=== PATIENT | male | born 1965 | race Hispanic/Latino ===

== ENCOUNTER 2017-11-12 06:04 | Inpatient (IN) | payer OTHER ==
[2017-10-24 14:23] VITALS: BMI 34.8
[2017-11-12 07:11] LABS: BASO # 0.1 K/uL (0.0-0.2); BASO % 1.4 % (0.0-2.0); EOS # 0.3 K/uL (0.0-0.7); EOS % 5.1 % (0.0-4.0); HEMOGLOBIN 14.9 g/dL (12.0-18.0); LYMPH # 2.5 K/uL (1.0-4.3); LYMPH % 38.1 % (20.0-40.0); MEAN CELL VOLUME 87.8 fl (80.0-94.0); MEAN CORPUSCULAR HEMOGLOBIN 30.1 pg (27.0-31.0); MEAN CORPUSCULAR HGB CONC 34.2 g/dL (33.0-37.0); MONO # 0.8 K/uL (0.0-0.8); MONO % 12.3 % (0.0-10.0); NEUT # 2.8 K/uL (1.8-7.0); NEUT % 43.1 % (50.0-75.0); NRBC % 0.1 % (0.0-0.0); RBC 4.94 Mil/uL (4.40-5.90); RED CELL DISTRIBUTION WIDTH 12.6 % (11.5-14.5); WHITE BLOOD COUNT 6.5 K/uL (4.8-10.8)
[2017-11-12] MEDS ORDERED: Lactated Ringer's 1,000 ML IV ONE (07:17)
[2017-11-12 07:19] LABS: ALB/GLOB RATIO 1.2 (1.0-2.1); ALBUMIN 3.6 g/dL (3.5-5.0); ALT/SGPT 36 U/L (21-72); AST/SGOT 27 U/L (17-59); BLOOD UREA NITROGEN 15 mg/dl (9-20); CALCIUM 8.8 mg/dL (8.4-10.2); GFR AFRICAN-AMERICAN > 60; GFR NON-AFRICAN AMERICAN > 60
[2017-11-12] MEDS ORDERED: Propofol 10 mg/ml Inj (20 ML) ONE ×2 (07:29→08:00)
[2017-11-12] MEDS ORDERED: Succinylcholine 200 mg/10 ml Inj IV ONE (07:29)
[2017-11-12] MEDS ORDERED: Lidocaine 4% (Laryng-O-Jet) Kit MM ONE (07:29)
[2017-11-12] MEDS ORDERED: Midazolam 2 MG/2 ML VIAL ONE (07:29)
[2017-11-12] MEDS ORDERED: Sodium Chloride 0.9% 10 ML IV ONE (07:30)
[2017-11-12] MEDS ORDERED: Rocuronium 10 mg/ml (5 ml) ONE ×2 (07:32→08:24)
[2017-11-12] MEDS ORDERED: Sodium Chloride 0.9% 20 ML IV ONE (07:35)
[2017-11-12] MEDS ORDERED: Thrombin Topical 5,000 Int Units Spray Kit ONE (07:35)
[2017-11-12] MEDS ORDERED: Absorbable Gelatin Sponge Size 100 ONE (07:35)
[2017-11-12] MEDS ORDERED: Bacitracin Ointment 30 GM TUBE ONE (07:35)
[2017-11-12 07:51] LABS: INR 1.1 (0.9-1.2); PARTIAL THROMBOPLASTIN TIME 32.1 Seconds (25.6-37.1); PROTHROMBIN TIME 11.7 Seconds (9.8-13.1)
[2017-11-12] MEDS: Bupivacaine HCl 0.5% PF (30 ml) Inj ONE ×2 (09:44→10:07)
[2017-11-12] MEDS: EPINEPHrine 1 mg/ml (1:1000) Inj ONE ×2 (09:45→10:07)
[2017-11-12] MEDS: Morphine 1 mg/ml preservative-free Inj(Duramorph) ONE ×2 (09:46→10:07)
[2017-11-12] MEDS ORDERED: Sodium Chloride 0.9% Inj (10mL) IV ONE ×2 (09:47→10:07)
[2017-11-12] MEDS: Lactated Ringer's 1,000 ML IV SCH ×2 (10:50→21:31)
[2017-11-12] MEDS ORDERED: HYDROmorphone 0.5 mg/0.5 ml ISec IVP PRN (10:53)
--- NOTE | 2017-11-12 10:54 | PCM.SURG1 ---
Surgeon's Initial Post Op Note - Surgeon's Notes Surgeon: Cesar Mehta MD Flooring Helper: Adriel Campbell PA-C; Marbella Romero DPM Type of Anesthesia: General Endo Pre-Operative Diagnosis: Left Knee severe OA Operative Findings: See op report Post-Operative Diagnosis: Same as pre-op dx Operation Performed: L TKR Specimen/Specimens Removed: Left knee bone and soft tissue Estimated Blood Loss: EBL {In ML}: 50 Date of Surgery/Procedure: 11/12/17 Time of Surgery/Procedure: 08:00
[2017-11-12] MEDS ORDERED: Oxycodone/Acetaminophen 5/325 mg Tab PO PRN (11:02)
--- NOTE | 2017-11-12 12:52 | RAD ---
PROCEDURE: Left Knee Radiographs. HISTORY: Status post left TKA are presenting with pain COMPARISON: None. FINDINGS: BONES: Expected postoperative findings. JOINTS: Air within the infrapatellar space and suprapatellar bursa. JOINT EFFUSION: Expected postoperative joint effusion with a air OTHER FINDINGS: None. IMPRESSION: Satisfactory postoperative status.
[2017-11-12] MEDS ORDERED: ceFAZolin 1 GM in Sodium Chloride 0.9% 100 ML IVPB ONE ×2 (14:00→20:00)
--- NOTE | 2017-11-12 16:10 | CP.PCM.HP ---
History of Present Illness - History of Present Illness History of Present Illness: 52 yr old M presented to same day surgery for scheduled left total knee replacement s/p chronic pain secondary to osteoarthritis of left knee refractory to conservative treatment. PMH includes hypercholesterolemia. Patient denies SOB, chest pain, palpitations, nausea or vomiting. PMD: [facility] (clinic has various PMD's) Specialist: Dr. Mehta- orthopedic surgery PMHx: Hypercholesterolemia SurHx: Right ACL repair, various MSK surgical procedures ( bilateral hands and feet) FMHx: Mother is 87 with HTN and PVD, Dad from [place] in his 70's, brother has multiple myeloma, younger brother diagnosed with colon cancer at 49 , twin sister has epilepsy SocHx: denies tobacco, social EToH, denies drugs Medications: lipitor 20 mg PO QHS Allergies: NKDA Present on Admission - Present on Admission Any Indicators Present on Admission: No History of DVT/PE: No History of Uncontrolled Diabetes: No Urinary Catheter: No Decubitus Ulcer Present: No History Surgical Site Infection Following: None Review of Systems - Review of Systems All systems: reviewed and no additional remarkable complaints except (for what is mentioned in HPI) - Constitutional Constitutional: absent: Chills, Fever - EENT Eyes: absent: Blurred Vision, Change in Vision Ears: absent: Ear Discharge, Ear Pain Nose/Mouth/Throat: absent: Nasal Congestion, Nasal Discharge - Cardiovascular Cardiovascular: absent: Chest Pain, Dyspnea - Respiratory Respiratory: absent: Cough, Hemoptysis - Gastrointestinal Gastrointestinal: absent: Abdominal Pain, Nausea, Vomiting - Genitourinary Genitourinary: absent: Difficulty Urinating, Dysuria - Musculoskeletal Musculoskeletal: Other (chronic left knee pain ). absent: Muscle Weakness, Myalgias - Integumentary Integumentary: absent: Bleeding Lesions, Rash - Neurological Neurological: absent: Disequilibrium, Dizziness, Numbness, Headaches - Psychiatric Psychiatric: absent: Anxiety, Depression - Hematologic/Lymphatic Hematologic: absent: Easy Bleeding, Easy Bruising Past Patient History - Past Medical History & Family History Past Medical History?: No - Past Social History Smoking Status: Never Smoked - CARDIAC Hx Cardiac Disorders: No - PULMONARY Hx Respiratory Disorders: No - NEUROLOGICAL Hx Neurological Disorder: No - HEENT Hx HEENT Problems: No - RENAL Hx Chronic Kidney Disease: No - ENDOCRINE/METABOLIC Hx Endocrine Disorders: No - HEMATOLOGICAL/ONCOLOGICAL Hx Blood Disorders: No - INTEGUMENTARY Hx Dermatological Problems: No - MUSCULOSKELETAL/RHEUMATOLOGICAL Hx Musculoskeletal Disorders: Yes Hx Back Pain: Yes Hx Falls: No - GASTROINTESTINAL Hx Gastrointestinal Disorders: No - GENITOURINARY/GYNECOLOGICAL Hx Genitourinary Disorders: No - PSYCHIATRIC Hx Psychophysiologic Disorder: No - SURGICAL HISTORY Hx Surgeries: Yes Hx Arthroscopy: Yes (LEFT KNEE01/03/16) Hx Musculoskeletal Surgery: Yes (Lumbar discectomy 1999) Hx Orthopedic Surgery: Yes (R kinee ACL repair 2012) Other/Comment: RIGHT KNEE ACL .LOWER BACK - ANESTHESIA Hx Anesthesia: Yes Hx Anesthesia Reactions: No Hx Malignant Hyperthermia: No Has any member of the family had a problem w/ anesthesia?: No Meds Allergies/Adverse Reactions: Allergies Allergy/AdvReac Type Severity Reaction Status Date / Time No Known Allergies Allergy Verified 11/05/17 07:46 Physical Exam - Constitutional Appears: No Acute Distress - Head Exam Head Exam: ATRAUMATIC, NORMOCEPHALIC - Eye Exam Eye Exam: EOMI Pupil Exam: PERRL - ENT Exam ENT Exam: Mucous Membranes Moist - Neck Exam Neck exam: Positive for: Full Rom - Respiratory Exam Respiratory Exam: Clear to Auscultation Bilateral, NORMAL BREATHING PATTERN - Cardiovascular Exam Cardiovascular Exam: REGULAR RHYTHM, +S1, +S2 - GI/Abdominal Exam GI & Abdominal Exam: Normal Bowel Sounds, Soft (obese). absent: Tenderness - Extremities Exam Extremities exam: Negative for: calf tenderness, pedal edema - Neurological Exam Neurological exam: Alert, CN II-XII Intact, Oriented x3 - Psychiatric Exam Psychiatric exam: Normal Affect, Normal Mood - Skin Skin Exam: Dry, Intact, Warm Results - Vital Signs Recent Vital Signs: Last Vital Signs Temp 97.9 F 11/12/17 16:02 Pulse 96 H 11/12/17 16:02 Resp 18 11/12/17 16:02 BP 133/86 11/12/17 16:02 Pulse Ox 96 11/12/17 16:02 - Labs Result Diagrams: 11/12/17 06:55 11/12/17 06:55 Labs: Laboratory Results - last 24 hr 11/12/17 11/12/17 11/12/17 06:55 06:55 06:55 WBC 6.5 RBC 4.94 Hgb 14.9 Hct 43.4 MCV 87.8 MCH 30.1 MCHC 34.2 RDW 12.6 Plt Count 203 MPV 10.0 Neut % (Auto) 43.1 L Lymph % (Auto) 38.1 Payette % (Auto) 12.3 H Eos % (Auto) 5.1 H Baso % (Auto) 1.4 Neut # 2.8 Lymph # 2.5 Payette # 0.8 Eos # 0.3 Baso # 0.1 PT 11.7 INR 1.1 APTT 32.1 Sodium 141 Potassium 4.3 Chloride 105 Carbon Dioxide 26 Anion Gap 14 BUN 15 Creatinine 1.1 Est GFR ( Amer) > 60 Est GFR (Non-Af Amer) > 60 Random Glucose 102 Calcium 8.8 Total Bilirubin 0.5 AST 27 ALT 36 Alkaline Phosphatase 64 Total Protein 6.6 Albumin 3.6 Globulin 3.0 Albumin/Globulin Ratio 1.2 Blood Type Antibody Screen BBK History Checked 11/12/17 06:55 WBC RBC Hgb Hct MCV MCH MCHC RDW Plt Count MPV Neut % (Auto) Lymph % (Auto) Payette % (Auto) Eos % (Auto) Baso % (Auto) Neut # Lymph # Payette # Eos # Baso # PT INR APTT Sodium Potassium Chloride Carbon Dioxide Anion Gap BUN Creatinine Est GFR ( Amer) Est GFR (Non-Af Amer) Random Glucose Calcium Total Bilirubin AST ALT Alkaline Phosphatase Total Protein Albumin Globulin Albumin/Globulin Ratio Blood Type A POSITIVE Antibody Screen Negative BBK History Checked Patient has bt Assessment & Plan - Assessment and Plan (Free Text) Assessment: 52 yr old M presented to same day surgery for scheduled left total knee replacement s/p chronic pain secondary to osteoarthritis of left knee refractory to conservative treatment. Patient is medically stable for surgery. -resume home meds after surgery -heart healthy diet after surgery -pain management -orthopedics on consult -f/u next day CBC and BMP - Date & Time Date: 11/12/17 Time: 09:40
[2017-11-12] MEDS: oxyCODONE 10 mg ER Tab (oxyCONTIN) PO SCH (21:28)
--- NOTE | 2017-11-12 21:32 | OP ---
PROCEDURE DATE: 11/12/2017 ATTENDING PHYSICIAN: Cesar Mehta MD. FOUNDRY SUPERVISOR: Adriel Campbell PA-C. PREOPERATIVE DIAGNOSIS: Left knee osteoarthritis. POSTOPERATIVE DIAGNOSIS: Left knee osteoarthritis. PROCEDURE: Left total knee replacement. IMPLANTS SIZE: [employer]: size 3 tibia, size 3 femur, 13 mm polyethylene insert, and 35 mm patellar button. ANESTHESIA TYPE: General. ESTIMATED BLOOD LOSS: 50 mL. COMPLICATIONS: None. HISTORY: The patient with prolonged history of left knee pain progressively getting worse despite extensive conservative management, which included activity modification, injections, anti-inflammatory modification and physical therapy. X-rays had revealed advanced arthritis. Patient was indicated for total knee replacement due to continued pain and limited mobility. I had a detailed discussion with the patient in the office explaining the nature of the surgery, alternatives of surgery, risks and benefits, rehabilitation protocol and surgical markings. Risks of surgery include but not limited to continued pain, lack of motion, infection, vascular injury, DVT / PE, nerve injury including peroneal nerve dysfunction, reflex sympathetic dystrophy, compartment syndrome, unforeseen medical and/or anesthesia complications, limb loss, and even . The patient expressed an understanding of the risks and possible benefits of the procedure, and is also aware of the alternatives to surgery. DESCRIPTION OF PROCEDURE: On the day of the surgery, the patient was admitted to pre-operative holding area. A laterality sheet was completed confirming the correct operative site. The correct surgical knee was marked in the holding area and informed consent was signed from the patient. Once again, I reviewed the risks and benefits of the surgery with the patient in detail. These risks include but are not limited to continued pain, lack of motion, infection, vascular injury, DVT / PE, nerve injury including peroneal nerve dysfunction, reflex sympathetic dystrophy, symptomatic hardware, need for further procedure and surgeries, instability, iatrogenic fractures, compartment syndrome, unforeseen medical and/or anesthesia complications, limb loss, and even . The patient expressed an understanding of the risks and possible benefits of the procedure, also aware of the alternatives to surgery and signed the informed consent. The patient was transported to the operating room and placed in the supine position, general anesthesia was obtained. A padded tourniquet was applied to patient's operative thigh and appropriate prophylactic antibiotics were given. The operative leg was draped and prepped in standard sterile manner. Timeout was completed, confirming patient's left knee to be the correct operative site. Using an Esmarch, the extremity was exsanguinated and tourniquet was inflated to 350 mmHg. The surgical incision markings were made using patella border, tibial tubercle, patella and quadriceps tendon. Using a 10 blade, a midline incision was made. Skin dissection was taken until the prepatellar fascia was identified and the corners of the patellar tendon were marked for proper closure at the end of the procedure. Using a fresh 10 blade, a medial parapatellar arthrotomy was performed. The knee was exposed in the standard manner. The deep MCL was elevated for exposure, medial and lateral menisci were removed, ACL and PCL were also transected. The tibia was subluxed anteriorly. Planned tibial cut was made with power saw, using extra-medullary guide, perpendicular to mechanical axis of the tibia. After the cut was made, the alignment was also checked and was found to be appropriate. Tibial cut surface was measured with trial base plate and it was noted that size 3 tibial baseplate was provide sufficient coverage without overhang. Tibial component was externally rotated and marked. Next, the knee was placed into 90 degrees of flexion. A drill hole was made within the femoral notch anterior to PCL insertion for placement of intramedullary femoral derrick. Intramedullary femoral derrick was inserted within the femoral canal and planned distal femoral cut was made. After the cut, knee was brought into full extension. Spacer blocks were used to check the extension balancing both in full extension and 30 degrees of flexion. It was found that 13 mm trial spacer block allowed full extension with symmetric varus and valgus balancing. Next we proceed with Patella resurfacing. Patella width was found to 26 mm. Using the free-hand technique the arthritic patella surface was resected. Patella was sized using the guide and it was noted that 35 mm. Patella dome button would be appropriate for the patient. Next the size of femoral component was determined using the posterior referencing guide. It was noted that a size 3 femur would be appropriate for this patient without causing any significant notching. A 4 x 1 cutting block was placed and flexion gap balancing was checked. The flexion gap was found to be symmetric to the extension gap. Anterior and posterior condyle, anterior and posterior chamfer cuts were made. Next, appropriate size box cut for femoral component was prepared using the guide. The femoral trial component was impacted onto the distal femur. Appropriate size tibial trial component was also placed on the cut surface of the tibia. Using the drill and punch, keel for tibial implant was prepared. Trial tibial tray was secured onto the tibia using pins. Different size trial polyethylene inserts were secured on to the trial tibial tray to critically assess the following parameters: Full range of motion, extension and flexion gap balancing, mid-flexion stability, anterior and posterior drawer, and patellar tracking. All parameters were found to be satisfactory with size 13 polyethylene insert. All the trial components were removed. Implants were opened on the back table. Cement was mixed and we proceed with cement fixation of the implants. Tibial tray, femoral component and patellar dome button were secured with cement. Polyethylene insert was secured onto the tibial tray using locking mechanism. The knee was reduced and brought into full extension. Cement was allowed to harden until final component fixation. Knee was taken through the final range of motion for stability testing, and found to be satisfactory. A 60 mL of custom cocktail mixture was injected into posterior capsule, MCL, LCL, quadriceps tendon, and patellar tendon. Wound was copiously irrigated with sterile antibiotic solution using pulse lavage. Arthrotomy was closed using heavy suture and wound was closed in standard manner. Patient was extubated, transferred to stretcher and taken to the recovery room. Post-operative instructions were provided, physical therapy consult was requested along with DVT prophylaxis and appropriate pain medications. During this procedure, I was assisted by Adriel Campbell PA-C, who assisted in positioning the patient on the operating room table as well as transferring the patient from the operating room table to the recovery room stretcher. In addition, Adriel Campbell PA-C, assisted me during the actual operative procedure by positioning, protecting critical neurovascular structures, exposure of the joint, and proper positioning of the implants. The presence of Adriel Campbell PA-C, as my operative diet assistant was medically necessary to ensure the utmost safety of the patient in the pre, intra-, and post-operative periods. Cesar Mehta MD DEB
[2017-11-13 06:42] LABS: BASO % 0.6 % (0.0-2.0); EOS # 0.1 K/uL (0.0-0.7); EOS % 0.9 % (0.0-4.0); HEMOGLOBIN 13.2 g/dL (12.0-18.0); LYMPH # 2.2 K/uL (1.0-4.3); LYMPH % 25.6 % (20.0-40.0); MEAN CELL VOLUME 88.6 fl (80.0-94.0); MEAN CORPUSCULAR HEMOGLOBIN 30.7 pg (27.0-31.0); MEAN CORPUSCULAR HGB CONC 34.6 g/dL (33.0-37.0); MEAN PLATELET VOLUME 10.2 fl (7.2-11.7); MONO # 1.1 K/uL (0.0-0.8); MONO % 12.7 % (0.0-10.0); NEUT # 5.2 K/uL (1.8-7.0); NEUT % 60.2 % (50.0-75.0); NRBC % 0.1 % (0.0-0.0); RBC 4.29 Mil/uL (4.40-5.90); RED CELL DISTRIBUTION WIDTH 12.7 % (11.5-14.5); WHITE BLOOD COUNT 8.6 K/uL (4.8-10.8)
[2017-11-13 06:47] LABS: BLOOD UREA NITROGEN 11 mg/dl (9-20); CALCIUM 8.3 mg/dL (8.4-10.2); GFR AFRICAN-AMERICAN > 60; GFR NON-AFRICAN AMERICAN > 60
[2017-11-13] MEDS: oxyCODONE 10 mg ER Tab (oxyCONTIN) PO SCH ×3 (09:23→21:29)
--- NOTE | 2017-11-13 17:58 | CP.PCM.PN ---
Subjective - Date & Time of Evaluation Date of Evaluation: 11/13/17 Time of Evaluation: 10:40 - Subjective Subjective: Patient seen and examined at bedside with attending-Dr. Macias. Reports he is doing well, pain is controlled, tolerating PO diet, can ambulate with assistance. Objective - Vital Signs/Intake and Output Vital Signs (last 24 hours): Temp Pulse Resp BP Pulse Ox 98 F 91 H 18 149/83 96 11/13/17 16:29 11/13/17 16:29 11/13/17 16:29 11/13/17 16:29 11/13/17 16:29 Intake and Output: 11/13/17 11/13/17 06:59 18:59 Intake Total 1540 Output Total 1000 Balance 540 - Medications Medications: Current Medications Acetaminophen (Tylenol 325mg Tab) 325 mg PO Q4 PRN PRN Reason: pain1-3 Aspirin (Aspirin) 325 mg PO BID [facility] Last Admin: 11/13/17 16:28 Dose: 325 mg Celecoxib (Celebrex) 100 mg PO Q12 [facility] Last Admin: 11/13/17 09:24 Dose: 100 mg Lactated Ringer's (Lactated Ringer's) 1,000 mls @ 100 mls/hr IV .Q10H [facility] Last Admin: 11/12/17 21:31 Dose: 100 mls/hr Ketorolac Tromethamine (Toradol) 15 mg IM Q8 [facility] Stop: 11/14/17 23:59 Last Admin: 11/13/17 09:24 Dose: 15 mg Ketorolac Tromethamine (Toradol) 15 mg IVP Q6 PRN PRN Reason: Pain, moderate (4-7) Oxycodone HCl (Oxycontin Extended Release Tab) 10 mg PO Q12 [facility] Stop: 11/26/17 21:01 Last Admin: 11/13/17 09:37 Dose: Not Given Oxycodone/Acetaminophen (Percocet 5/325 Mg Tab) 1 tab PO Q4 PRN PRN Reason: pain4-6 Stop: 11/15/17 11:03 - Labs Labs: 11/13/17 05:40 11/13/17 05:40 PT 11.7 Seconds (9.8-13.1) 11/12/17 06:55 INR 1.1 (0.9-1.2) 11/12/17 06:55 APTT 32.1 Seconds (25.6-37.1) 11/12/17 06:55 Assessment and Plan - Assessment and Plan (Free Text) Assessment: 52 yr old M POD #1 s/p left total knee replacement s/p chronic pain secondary to osteoarthritis of left knee refractory to conservative treatment. Patient is medically stable and participating in PT. -continue home meds -heart healthy diet -pain management -orthopedics on consult -PT/OT -out of bed to chair
[2017-11-14 00:39] VITALS: TEMP 98.6
[2017-11-14 06:41] LABS: BASO # 0.1 K/uL (0.0-0.2); BASO % 0.6 % (0.0-2.0); EOS # 0.2 K/uL (0.0-0.7); EOS % 2.2 % (0.0-4.0); HEMOGLOBIN 13.1 g/dL (12.0-18.0); LYMPH # 2.1 K/uL (1.0-4.3); MEAN CELL VOLUME 88.8 fl (80.0-94.0); MEAN CORPUSCULAR HEMOGLOBIN 30.8 pg (27.0-31.0); MEAN CORPUSCULAR HGB CONC 34.7 g/dL (33.0-37.0); MEAN PLATELET VOLUME 10.2 fl (7.2-11.7); MONO # 1.3 K/uL (0.0-0.8); MONO % 13.7 % (0.0-10.0); NEUT # 5.6 K/uL (1.8-7.0); NEUT % 60.5 % (50.0-75.0); NRBC % 0.2 % (0.0-0.0); RBC 4.25 Mil/uL (4.40-5.90); RED CELL DISTRIBUTION WIDTH 12.6 % (11.5-14.5); WHITE BLOOD COUNT 9.2 K/uL (4.8-10.8)
[2017-11-14 07:00] LABS: BLOOD UREA NITROGEN 14 mg/dl (9-20); CALCIUM 8.5 mg/dL (8.4-10.2); GFR AFRICAN-AMERICAN > 60; GFR NON-AFRICAN AMERICAN > 60
[2017-11-14 07:57] VITALS: BP 128/81; PULSE 87; RESP 20; O2SAT 96
--- NOTE | 2017-11-14 08:53 | PN ---
DATE: SUBJECTIVE: The patient is a 52-year-old male who presents status post left total knee replacement postop day #1. The patient was seen and examined at bedside. He is comfortable on bed. He complains of mild left knee pain and swelling. He denies any shortness of breath. He denies any chest pain. He denies nausea, vomiting, or diarrhea. He denies paresthesia or weakness of left lower extremity. PHYSICAL EXAMINATION: VITAL SIGNS: Temperature 98.9, heart rate 88, blood pressure 135/72, respiratory rate 20, and oxygen saturation 96% on room air. EXTREMITIES: Th patient's physical exam of the left knee, dressing is clean, dry, and intact. Calves are soft and nontender bilaterally. Neurovascularly intact distally. Normal range of motion at the left ankle. Distal pulses are within normal. ASSESSMENT AND PLAN: This 52-year-old male presents status post left total knee replacement, postoperative day #1, under treatment. Physical therapy, occupational therapy, weightbearing as tolerated to the left lower extremity. Deep venous prophylaxis. The patient is on aspirin 325 mg b.i.d., pain control, incentive spirometer, and continue current management. Follow up labs, current labs are stable. We will continue to monitor the patient. Adriel Campbell PA-C Cesar Mehta MD
[2017-11-14] MEDS: oxyCODONE 10 mg ER Tab (oxyCONTIN) PO SCH ×2 (09:08→09:12)
--- NOTE | 2017-11-14 09:46 | CP.PCM.PN ---
Subjective - Date & Time of Evaluation Date of Evaluation: 11/14/17 Time of Evaluation: 09:44 - Subjective Subjective: Orthopaedic Progress note for Dr. Mehta 61 year old male 2 days s/p left total knee replacement was seen resting comfortably at bedside. He admits to some pain and swelling of the left knee, and rates it as 3/10. He states that he did physical therapy yesterday and was able to walk up and down the halls. He denies any n/v/f/c/sob/cp or calf pain. Objective - Vital Signs/Intake and Output Vital Signs (last 24 hours): Temp Pulse Resp BP Pulse Ox 98.6 F 87 20 128/81 96 11/14/17 07:56 11/14/17 07:56 11/14/17 07:56 11/14/17 07:56 11/14/17 07:56 - Medications Medications: Current Medications Acetaminophen (Tylenol 325mg Tab) 325 mg PO Q4 PRN PRN Reason: pain1-3 Aspirin (Aspirin) 325 mg PO BID [facility] Last Admin: 11/14/17 09:08 Dose: 325 mg Celecoxib (Celebrex) 100 mg PO Q12 [facility] Last Admin: 11/14/17 09:03 Dose: 100 mg Lactated Ringer's (Lactated Ringer's) 1,000 mls @ 100 mls/hr IV .Q10H [facility] Last Admin: 11/12/17 21:31 Dose: 100 mls/hr Ketorolac Tromethamine (Toradol) 15 mg IVP Q6 PRN PRN Reason: Pain, moderate (4-7) Last Admin: 11/13/17 17:00 Dose: 15 mg Oxycodone HCl (Oxycontin Extended Release Tab) 10 mg PO Q12 [facility] Stop: 11/26/17 21:01 Last Admin: 11/14/17 09:12 Dose: Not Given Oxycodone/Acetaminophen (Percocet 5/325 Mg Tab) 1 tab PO Q4 PRN PRN Reason: pain4-6 Stop: 11/15/17 11:03 - Labs Labs: 11/14/17 05:45 11/14/17 05:45 PT 11.7 Seconds (9.8-13.1) 11/12/17 06:55 INR 1.1 (0.9-1.2) 11/12/17 06:55 APTT 32.1 Seconds (25.6-37.1) 11/12/17 06:55 - Constitutional Appears: Well, Non-toxic, No Acute Distress - Extremities Exam Extremities Exam: Normal Capillary Refill Additional comments: Dressing is clean, dry, intact to LLE Calves are non-tender b/l Pedals pulses palpable - Neurological Exam Neurological Exam: Alert, Awake, Oriented x3 - Psychiatric Exam Psychiatric exam: Normal Affect, Normal Mood Assessment and Plan - Assessment and Plan (Free Text) Assessment: 52 year old male 2 days s/p left total knee replacement Plan: patient seen and evaluated discussed in detail with attending, Dr. Mehta ELENA and webrol removed, aquacel dressing left intact patient to cont PT WBAT to LLE Cont DVT ppx-asprin 325 mg BID will cont to follow patient while in house
--- NOTE | 2017-11-14 14:35 | CP.PCM.DIS ---
Provider - Provider Date of Admission: 11/12/17 11:08 Attending physician: Tay Macias MD Primary care physician: NO FAMILY PROVIDER Consults: Dr. Mehta- orthopedic surgery Time Spent in preparation of Discharge (in minutes): 30 Diagnosis - Discharge Diagnosis (1) Status post total left knee replacement Status: Acute Priority: Low (2) Osteoarthritis of left knee Status: Chronic Priority: Low Hospital Course - Lab Results Lab Results: Most Recent Lab Values WBC 9.2 K/uL (4.8-10.8) 11/14/17 05:45 RBC 4.25 Mil/uL (4.40-5.90) L 11/14/17 05:45 Hgb 13.1 g/dL (12.0-18.0) 11/14/17 05:45 Hct 37.7 % (35.0-51.0) 11/14/17 05:45 MCV 88.8 fl (80.0-94.0) 11/14/17 05:45 MCH 30.8 pg (27.0-31.0) 11/14/17 05:45 MCHC 34.7 g/dL (33.0-37.0) 11/14/17 05:45 RDW 12.6 % (11.5-14.5) 11/14/17 05:45 Plt Count 189 K/uL (130-400) 11/14/17 05:45 MPV 10.2 fl (7.2-11.7) 11/14/17 05:45 Neut % (Auto) 60.5 % (50.0-75.0) 11/14/17 05:45 Lymph % (Auto) 23.0 % (20.0-40.0) 11/14/17 05:45 [place] % (Auto) 13.7 % (0.0-10.0) H 11/14/17 05:45 Eos % (Auto) 2.2 % (0.0-4.0) 11/14/17 05:45 Baso % (Auto) 0.6 % (0.0-2.0) 11/14/17 05:45 Neut # 5.6 K/uL (1.8-7.0) 11/14/17 05:45 Lymph # 2.1 K/uL (1.0-4.3) 11/14/17 05:45 [place] # 1.3 K/uL (0.0-0.8) H 11/14/17 05:45 Eos # 0.2 K/uL (0.0-0.7) 11/14/17 05:45 Baso # 0.1 K/uL (0.0-0.2) 11/14/17 05:45 PT 11.7 Seconds (9.8-13.1) 11/12/17 06:55 INR 1.1 (0.9-1.2) 11/12/17 06:55 APTT 32.1 Seconds (25.6-37.1) 11/12/17 06:55 Sodium 138 mmol/l (132-148) 11/14/17 05:45 Potassium 4.0 MMOL/L (3.6-5.0) 11/14/17 05:45 Chloride 102 mmol/L (98-107) 11/14/17 05:45 Carbon Dioxide 26 mmol/L (22-30) 11/14/17 05:45 Anion Gap 14 (10-20) 11/14/17 05:45 BUN 14 mg/dl (9-20) 11/14/17 05:45 Creatinine 1.0 mg/dl (0.8-1.5) 11/14/17 05:45 Est GFR ( Amer) > 60 11/14/17 05:45 Est GFR (Non-Af Amer) > 60 11/14/17 05:45 Random Glucose 108 mg/dL (75-110) 11/14/17 05:45 Calcium 8.5 mg/dL (8.4-10.2) 11/14/17 05:45 Total Bilirubin 0.5 mg/dl (0.2-1.3) 11/12/17 06:55 AST 27 U/L (17-59) 11/12/17 06:55 ALT 36 U/L (21-72) 11/12/17 06:55 Alkaline Phosphatase 64 U/L (38-126) 11/12/17 06:55 Total Protein 6.6 G/DL (6.3-8.2) 11/12/17 06:55 Albumin 3.6 g/dL (3.5-5.0) 11/12/17 06:55 Globulin 3.0 gm/dL (2.2-3.9) 11/12/17 06:55 Albumin/Globulin Ratio 1.2 (1.0-2.1) 11/12/17 06:55 Blood Type A POSITIVE 11/12/17 06:55 Antibody Screen Negative 11/12/17 06:55 BBK History Checked Patient has bt 11/12/17 06:55 - Hospital Course Hospital Course: 52 yr old M POD #2 s/p left total knee replacement for chronic pain secondary to osteoarthritis of left knee refractory to conservative treatment. Patient is medically stable for discharge with instructions to f/u with Dr. Mehta- orthopedic surgery in 1 week, f/u with PMD within 1 week, adequate hydration, take meds as prescribed with food, resume home meds. - Date & Time of H&P Date of H&P: 11/12/17 Time of H&P: 09:40 Discharge Exam - Head Exam Head Exam: ATRAUMATIC, NORMOCEPHALIC - Eye Exam Eye Exam: EOMI - ENT Exam ENT Exam: Mucous Membranes Moist - Respiratory Exam Respiratory Exam: NORMAL BREATHING PATTERN - Cardiovascular Exam Cardiovascular Exam: REGULAR RHYTHM, +S1, +S2 - GI/Abdominal Exam GI & Abdominal Exam: Normal Bowel Sounds, Soft - Extremities Exam Additional comments: no calf tenderness or pedal edema - Neurological Exam Neurological exam: Alert, CN II-XII Intact, Oriented x3 - Psychiatric Exam Psychiatric exam: Normal Affect, Normal Mood - Skin Skin Exam: Dry, Normal Color, Warm Discharge Plan - Discharge Medications Prescriptions: Aspirin 325 mg PO BID #60 tab Famotidine [Pepcid] 40 mg PO DAILY #30 tablet Ibuprofen [Motrin Tab] 800 mg PO TID PRN #60 tab PRN Reason: Pain, Severe (8-10) - Follow Up Plan Condition: GOOD Disposition: HOME/ ROUTINE Additional Instructions: follow up with Dr. Mehta- orthopedic surgery in 1 week, follow up with PMD within 1 week, adequate hydration, take meds as prescribed with food, resume home meds. Referrals: FAMILY PROVIDER,NO [Primary Care Provider] - Clinical Quality Measures - Date & Time of Discharge Summary Date of Discharge Summary: 11/14/17 Time of Discharge Summary: 14:39
== END 2017-11-14 15:47 | disposition home health service (06) | DRG 470 ==
LOC: H.OPSURG 06:04 → H.MEDSURG1 11:08
PROVIDERS: ADMIT Family Medicine; ATTEND Family Medicine
PROC: 0SRD0J9 Replacement of Left Knee Joint with Synthetic Substitute, Cemented, Open Approach (ICD-10-PCS; principal; 2017-11-12 07:45)
DX: M17.12 Unilateral primary osteoarthritis, left knee (principal); E78.00 Pure hypercholesterolemia, unspecified; G89.29 Other chronic pain; Z79.82 Long term (current) use of aspirin

== ENCOUNTER → 2018-01-21 | Day surgery (SDC) | payer OTHER ==
[2018-01-17 13:58] VITALS: BMI 33.5
[~2018-01-21] MED LIST: Midazolam 2 MG/2 ML VIAL ONE; Morphine 4 MG/ML VIAL IVP PRN; Oxycodone/Acetaminophen 5/325 mg Tab PO PRN; Propofol 10 mg/ml Inj (20 ML) ONE; Succinylcholine 200 mg/10 ml Inj IV ONE
[2018-01-21] MEDS: Lactated Ringer's 1,000 ML IV ONE (07:45)
--- NOTE | 2018-01-21 08:01 | PCM.SURG1 ---
Surgeon's Initial Post Op Note - Surgeon's Notes Surgeon: Cesar Mehta MD Consulting Practice Manager: Adriel Campbell PA-C Type of Anesthesia: General Mask Pre-Operative Diagnosis: Left knee adhesions/stiffness s/p LTKR Operative Findings: see op report Post-Operative Diagnosis: same as pre-op dx Operation Performed: Left knee manipulation under anesthesia Specimen/Specimens Removed: none Estimated Blood Loss: EBL {In ML}: 0 Date of Surgery/Procedure: 01/21/18 Time of Surgery/Procedure: 07:45
--- NOTE | 2018-01-21 08:56 | OP ---
PROCEDURE DATE: 01/21/2018 PREOPERATIVE DIAGNOSIS: Left knee stiffness. POSTOPERATIVE DIAGNOSIS: Left knee stiffness. PROCEDURE: Left knee manipulation under anesthesia. TYPE OF ANESTHESIA: Sedation. COMPLICATIONS: None. HISTORY: The patient is 2 months' status post left total knee replacement with limited range of motion. At that point, the patient was seen in the office. I had recommended left knee manipulation under anesthesia to improve his range of motions. I reviewed the risks and benefits of the procedure with the patient that included bleeding, infection, iatrogenic fractures among others. The patient fully understood the risks and benefits and opted to proceed. DESCRIPTION OF PROCEDURE: On the day of the procedure, the patient was brought into preoperative holding area. A laterality sheet was completed, confirming the patient's left knee to be the correct operative site. Left knee was marked and an informed consent was signed. The patient was brought into operating table and placed supine. He was given sedation and then gentle pressure. The knee was flexed gently to breakup scar tissue and also regained extension. At the end of procedure, the patient regained nearly full extension and flexion to nearly 125 degrees, and there were no complications of the procedure. Cesar Mehta MD DEB
--- NOTE | 2018-01-21 11:37 | CARD ---
APPROVED REPORT EKG Measurement Heart [id number] MN [id number] <Conclusion> Normal sinus rhythm Normal ECG
[2018-01-21 11:40] VITALS: RESP 18
[2018-01-21 11:42] VITALS: BP 133/95; PULSE 102; TEMP 97.6; O2SAT 96
== END | disposition home or self-care (01) ==
LOC: H.OPSURG 05:57
PROVIDERS: ATTEND Orthopaedic Surgery
DX: M25.662 Stiffness of left knee, not elsewhere classified (principal); E78.5 Hyperlipidemia, unspecified; K21.9 Gastro-esophageal reflux disease without esophagitis; Z96.652 Presence of left artificial knee joint
CPT/HCPCS: 27570; 93005; J0330; J1885; J2001; J2250; J2704; J3010; J7120